=== PATIENT | female | born 1955 | race American Indian/Alaskan Native ===

== ENCOUNTER 2016-07-23 09:57 | Emergency (ER) | payer MEDICAID ==
[2016-07-23 10:21] VITALS: BP 152/94
[2016-07-23] MEDS ORDERED: GEODON IM ONE ×2 (10:45→10:56)
[2016-07-23 11:08] LABS: Basophils % (Auto) 0.3 % (0.0-1.8); Eosinophils % (Auto) 0.1 % (0.0-4.3); Hematocrit 43.8 % (30.3-42.9); Hemoglobin 13.8 gm/dl (10.1-14.3); Mean Corpuscular HGB Conc 31 % (30-34); Mean Corpuscular Hemoglobin 28 pg (28-32); Mean Corpuscular Volume 88 fl (79-97); Platelet Count 255 K/mm3 (140-440); Red Blood Count 4.98 M/mm3 (3.65-5.03); Red Cell Distribution Width 13.8 % (13.2-15.2); White Blood Count 9.6 K/mm3 (4.5-11.0)
[2016-07-23 11:15] LABS: Anion Gap 23 mmol/L; Blood Urea Nitrogen 16 mg/dL (7-17); Calcium 9.8 mg/dL (8.4-10.2); Carbon Dioxide 24 mmol/L (22-30); Chloride 102.6 mmol/L (98-107); Glucose 97 mg/dL (65-100); Potassium 3.6 mmol/L (3.6-5.0); Sodium 146 mmol/L (137-145)
--- NOTE | 2016-07-23 14:39 | Consultation ---
History of Present Illness - Reason for Consult Consult date: 07/23/16 Reason for consult: Mental Health Eval Requesting physician: MELISA JORGENSEN - Chief Complaint Chief complaint: Patient threatening Staff - History of Present Psychiatric Illness 60 y.o. AA male patient [facility] to [facility]. In the ER patient threatening the staff per the assigned RN. She was given Geodon 5 mg IM for agitation. Upon arrival to patient's room, she was resting. I introduced myself and she mumbled gestures that I could not understand. She would not tell me her name and turned away from me in her bed once I asked her other questions. I could not attain an assessment at this time. Medications and Allergies Allergies Allergy/AdvReac Type Severity Reaction Status Date / Time No Known Allergies Allergy Verified 10/15/15 23:54 Home Medications Medication Instructions Recorded Confirmed Last Taken Type Losartan [Cozaar] 50 mg PO QDAY 12/12/15 07/23/16 Unknown History [place] Carbonate [[place] 600 mg PO QHS 07/23/16 07/23/16 Unknown History Carbonate ER] Metoprolol Xl [Metoprolol 25 mg PO QDAY 07/23/16 07/23/16 Unknown History SUCCINATE ER TAB] Quetiapine Fumarate [SEROquel] 100 mg PO QPM 07/23/16 07/23/16 Unknown History Quetiapine Fumarate [SEROquel] 150 mg PO QAM 07/23/16 07/23/16 Unknown History Quetiapine Fumarate [SEROquel] 300 mg PO QHS 07/23/16 07/23/16 Unknown History clonazePAM [ Klonopin] 0.5 mg PO BID PRN 07/23/16 07/23/16 Unknown History diphenhydrAMINE [Benadryl CAP] 50 mg PO Q8HR PRN 07/23/16 07/23/16 Unknown History Past psychiatric history - Past Medical History Past Medical History: other (unable to assess) Past Surgical History: Other (unable to assess) - past Psychiatric treatment and history psychiatric treatment history: unable to assess - Social History Social history: other (resides with caregiver) Mental Status Exam - Vital signs Last Vital Signs Temp 98.1 F 07/23/16 10:14 Pulse 87 07/23/16 10:14 Resp 16 07/23/16 11:03 BP 152/94 03/19/17 10:14 Pulse Ox 99 07/23/16 10:14 - Exam Affect: flat Mood: other Thought content: other (unable to assess) Thought Process: Disoriented Perceptions: other (unable to assess) Speech: other (mumble) Concentration: distractible, unable to pay attention Motor activity: other (Lying in bed) Level of consciousness: other (awake) Interaction: uncooperative Results Result Diagrams: 07/23/16 10:46 07/23/16 10:46 Abnormal lab results 07/23/16 07/23/16 Range/Units 10:46 10:46 Hct 43.8 H (30.3-42.9) % Sodium 146 H (137-145) mmol/L All other labs normal. Assessment and Plan Assessment and plan: Impression: Psychosis. Patient is uncooperative at this time to answer questions. Recommendation: 1013 with pending inpatient psychiatry services.
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
[2016-07-23] MEDS ORDERED: ALUM-MAG HYDROX-SIMETH 200-200-20MG/5ML PO PRN (15:44)
[2016-07-23] MEDS ORDERED: TYLENOL PO PRN (15:44)
[2016-07-23] MEDS ORDERED: MILK OF MAGNESIA PO PRN (15:44)
[2016-07-23] MEDS ORDERED: GEODON IM PRN (15:45)
[2016-07-23] MEDS ORDERED: GEODON PO SCH (16:00)
[2016-07-23] MEDS ORDERED: NORVASC PO SCH (16:00)
== END 2016-07-23 18:25 ==
LOC: ED 09:57 → EEVIPCON 09:57 → ED 18:25
DX: F23 Brief psychotic disorder (principal); F20.9 Schizophrenia, unspecified; I10 Essential (primary) hypertension
CPT/HCPCS: 36415; 80048; 80178; 85025; 96372; 99285; G0480; J3486; 80320

== ENCOUNTER 2017-05-11 20:06 | Emergency (ER) | payer MEDICAID ==
--- NOTE | 2017-05-11 22:21 | Emergency Department Report ---
ED Psych HPI - General Chief Complaint: Psych Stated Complaint: disoriented Time Seen by Provider: 05/11/17 22:18 Source: police Mode of arrival: Ambulatory - History of Present Illness Initial Comments: Patient is a 61-year-old Female past medical history schizophrenia and is being awaited for mental health issues. Patient brought in by police stating that she was lost and needs mental health evaluation. Patient is a very poor historian and very hard to understand however she is shaking her head that she has no pain at this time she is this point several times to her T and hurt her chest but shakes her head no to the following questions: Shortness of breath chest pain fever nausea vomiting suicidal or homicidal ideations MD Complaint: altered mental status -: unknown Associated Symptoms: confusion - Related Data Home Medications Medication Instructions Recorded Confirmed Last Taken Losartan [Cozaar] 50 mg PO QDAY 12/12/15 07/23/16 Unknown [place] Carbonate [[place] 600 mg PO QHS 07/23/16 07/23/16 Unknown Carbonate ER] Metoprolol Xl [Metoprolol 25 mg PO QDAY 07/23/16 07/23/16 Unknown SUCCINATE ER TAB] Quetiapine Fumarate [SEROquel] 100 mg PO QPM 07/23/16 07/23/16 Unknown Quetiapine Fumarate [SEROquel] 150 mg PO QAM 07/23/16 07/23/16 Unknown Quetiapine Fumarate [SEROquel] 300 mg PO QHS 07/23/16 07/23/16 Unknown clonazePAM [ Klonopin] 0.5 mg PO BID PRN 07/23/16 07/23/16 Unknown diphenhydrAMINE [Benadryl CAP] 50 mg PO Q8HR PRN 07/23/16 07/23/16 Unknown Allergies Allergy/AdvReac Type Severity Reaction Status Date / Time No Known Allergies Allergy Verified 10/15/15 23:54 ED Review of Systems ROS: Stated complaint: VAG BLEEDING Other details as noted in HPI Comment: Unobtainable due to pts medical conditions ED Past Medical Hx - Past Medical History Hx Hypertension: Yes Hx Psychiatric Treatment: Yes Additional medical history: CHRONIC SCHIZOPHRENIA - Surgical History Past Surgical History?: No - Social History Smoking Status: Never Smoker Substance Use Type: None - Medications Home Medications: Home Medications Medication Instructions Recorded Confirmed Last Taken Type Losartan [Cozaar] 50 mg PO QDAY 12/12/15 07/23/16 Unknown History [place] Carbonate [[place] 600 mg PO QHS 07/23/16 07/23/16 Unknown History Carbonate ER] Metoprolol Xl [Metoprolol 25 mg PO QDAY 07/23/16 07/23/16 Unknown History SUCCINATE ER TAB] Quetiapine Fumarate [SEROquel] 100 mg PO QPM 07/23/16 07/23/16 Unknown History Quetiapine Fumarate [SEROquel] 150 mg PO QAM 07/23/16 07/23/16 Unknown History Quetiapine Fumarate [SEROquel] 300 mg PO QHS 07/23/16 07/23/16 Unknown History clonazePAM [ Klonopin] 0.5 mg PO BID PRN 07/23/16 07/23/16 Unknown History diphenhydrAMINE [Benadryl CAP] 50 mg PO Q8HR PRN 07/23/16 07/23/16 Unknown History ED Physical Exam - General Limitations: Language Barrier General appearance: alert, in no apparent distress - Head Head exam: Present: atraumatic, normocephalic - Eye Eye exam: Present: normal appearance - ENT ENT exam: Present: mucous membranes moist - Neck Neck exam: Present: normal inspection - Respiratory Respiratory exam: Present: normal lung sounds bilaterally. Absent: respiratory distress - Cardiovascular Cardiovascular Exam: Present: regular rate, normal rhythm. Absent: systolic murmur, diastolic murmur, rubs, gallop - GI/Abdominal GI/Abdominal exam: Present: soft, normal bowel sounds - Extremities Exam Extremities exam: Present: normal inspection - Back Exam Back exam: Present: normal inspection - Neurological Exam Neurological exam: Present: alert, oriented X3 - Psychiatric Psychiatric exam: Present: normal affect, normal mood, other (very difficult to understand the patient's speech pattern) - Skin Skin exam: Present: warm, dry, intact, normal color. Absent: rash ED Course Vital Signs 05/11/17 05/11/17 05/12/17 21:08 23:12 14:44 Temperature 98.5 F 98.6 F Pulse Rate 94 H 81 78 Respiratory 16 17 18 Rate Blood Pressure 178/99 Blood Pressure 154/85 152/82 [Left] O2 Sat by Pulse 96 97 98 Oximetry 05/12/17 16:00 Temperature Pulse Rate Respiratory 18 Rate Blood Pressure Blood Pressure [Left] O2 Sat by Pulse 98 Oximetry ED Medical Decision Making - Lab Data Result diagrams: 05/11/17 23:46 05/11/17 23:46 - Medical Decision Making Patient has been medically cleared for psych placement Critical care attestation.: If time is entered above; I have spent that time in minutes in the direct care of this critically ill patient, excluding procedure time. ED Disposition Clinical Impression: Schizophrenia, acute Disposition: DC/TX-65 PSY HOSP/PSY UNIT Is pt being admited?: No Does the pt Need Aspirin: No Condition: Stable Referrals: GABY MATTHEWS MD [Primary Care Provider] - 3-5 Days
[2017-05-12 00:18] LABS: Basophils % (Auto) 0.3 % (0.0-1.8); Eosinophils % (Auto) 0.2 % (0.0-4.3); Hematocrit 39.7 % (30.3-42.9); Hemoglobin 12.8 gm/dl (10.1-14.3); Lymphocytes # (Auto) 3.1 K/mm3 (1.2-5.4); Lymphocytes % (Auto) 24.6 % (13.4-35.0); Mean Corpuscular HGB Conc 32 % (30-34); Mean Corpuscular Hemoglobin 28 pg (28-32); Mean Corpuscular Volume 87 fl (79-97); Monocytes % (Auto) 7.8 % (0.0-7.3); Platelet Count 301 K/mm3 (140-440); Red Blood Count 4.58 M/mm3 (3.65-5.03)
[2017-05-12 00:45] LABS: BUN/Creatinine Ratio 18; Blood Urea Nitrogen 14 mg/dL (7-17); Calcium 9.6 mg/dL (8.4-10.2); Hemolysis Index 7
[2017-05-12 03:08] LABS: Color,Urine Yellow (Yellow)
[2017-05-12 03:09] LABS: Bilirubin,Urine Negative (Negative)
[2017-05-12 03:10] LABS: Blood,Urine Moderate (Negative); Nitrite,Urine Negative (Negative); Urobilinogen,Urine < 2.0 mg/dL (<2.0)
[2017-05-12 03:11] LABS: Amorphous Crystals,Urine Rare; Calcium Oxalate Crystals,Urine 1+; Hyaline Casts,Urine Rare /LPF; Mucus,Urine 1+ /HPF
[2017-05-12 03:25] LABS: Amphetamine Screen,Urine PRESUMPTIVE NEGATIVE; Benzodiazepines Screen,Urine PRESUMPTIVE NEGATIVE; Cannabinoid Screen,Urine PRESUMPTIVE NEGATIVE; Cocaine Screen,Urine PRESUMPTIVE NEGATIVE; Methadone Screen,Urine PRESUMPTIVE NEGATIVE; Opiate Screen,Urine PRESUMPTIVE NEGATIVE
[2017-05-12 14:45] VITALS: BP 152/82
== END 2017-05-12 16:09 | disposition other institution (70) ==
LOC: ED 20:06 → EEVIPCON 20:06 → ED 05-12 16:09
DX: F20.9 Schizophrenia, unspecified (principal); I10 Essential (primary) hypertension
CPT/HCPCS: 36415; 80048; 80307; 81001; 84702; 85025; 86850; 86900; 86901; 99285; G0480; 80320

== ENCOUNTER 2017-07-13 08:37 | Emergency (ER) | payer MEDICAID ==
[2017-07-13 10:40] LABS: Basophils % (Auto) 0.2 % (0.0-1.8); Eosinophils % (Auto) 0.2 % (0.0-4.3); Lymphocytes # (Auto) 1.9 K/mm3 (1.2-5.4); Mean Corpuscular HGB Conc 33 % (30-34); Mean Corpuscular Hemoglobin 28 pg (28-32); Mean Corpuscular Volume 85 fl (79-97); Monocytes # (Auto) 0.7 K/mm3 (0.0-0.8); Monocytes % (Auto) 6.3 % (0.0-7.3); Platelet Count 324 K/mm3 (140-440); Red Blood Count 4.25 M/mm3 (3.65-5.03)
[2017-07-13 10:52] LABS: BUN/Creatinine Ratio 22; Blood Urea Nitrogen 13 mg/dL (7-17); Calcium 8.8 mg/dL (8.4-10.2); Hemolysis Index 2
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
[2017-07-13] MEDS ORDERED: HALDOL IM ONE (11:47)
[2017-07-13 13:35] LABS: Bilirubin,Urine NEG (Negative); Blood,Urine MOD (Negative); Color,Urine Yellow (Yellow); Hyaline Casts,Urine 1 /LPF; Mucus,Urine 2+ /HPF; Protein,Urine <15 mg/dL mg/dL (Negative); Urobilinogen,Urine < 2.0 mg/dL (<2.0)
[2017-07-13 13:44] LABS: Amphetamine Screen,Urine PRESUMPTIVE NEGATIVE; Benzodiazepines Screen,Urine PRESUMPTIVE NEGATIVE; Cannabinoid Screen,Urine PRESUMPTIVE NEGATIVE; Cocaine Screen,Urine PRESUMPTIVE NEGATIVE; Methadone Screen,Urine PRESUMPTIVE NEGATIVE; Opiate Screen,Urine PRESUMPTIVE NEGATIVE
[2017-07-13 20:47] VITALS: BP 116/60
== END 2017-07-13 20:46 ==
LOC: ED 08:37
DX: F20.89 Other schizophrenia (principal); F91.8 Other conduct disorders; I10 Essential (primary) hypertension
CPT/HCPCS: 36415; 80048; 80307; 81001; 85025; 96372; 99285; G0480; J1630; 80320

== ENCOUNTER 2019-03-02 10:19 | Emergency (ER) | payer MEDICARE, MEDICAID ==
[2019-03-02] MEDS ORDERED: ZIPRASIDONE MESYLATE 20 MG VIAL IM ONE (10:43)
[2019-03-02] MEDS ORDERED: WATER FOR INJ Sterile (PF) 10 ML ONE (10:48)
--- NOTE | 2019-03-02 10:53 | Emergency Department Report ---
ED General Adult HPI - General Chief complaint: Psych Stated complaint: MH Time Seen by Provider: 03/02/19 10:42 Source: police Mode of arrival: Ambulatory Limitations: No Limitations - History of Present Illness Initial comments: The patient presents to the emergency department from her place of residence for aggressive and combative behavior. The patient is facility and has been here multiple times prior. The patient denies psychiatric history and also denies homicidal or suicidal ideations. Patient denies auditory or visual hallucinations -: Sudden Severity scale (0 -10): 0 Improves with: none Worsens with: none Associated Symptoms: denies other symptoms Treatments Prior to Arrival: none - Related Data Home Medications Medication Instructions Recorded Confirmed Last Taken Losartan [Cozaar] 50 mg PO QDAY 12/12/15 01/17/19 Unknown [place] Carbonate [[place] 600 mg PO QHS 07/23/16 01/17/19 Unknown Carbonate ER] Metoprolol Xl [Metoprolol 25 mg PO QDAY 07/23/16 01/17/19 Unknown SUCCINATE ER TAB] clonazePAM [KlonoPIN] 0.5 mg PO BID PRN 07/23/16 01/17/19 Unknown diphenhydrAMINE [Benadryl CAP] 50 mg PO Q8HR PRN 07/23/16 01/17/19 Unknown traZODone [Desyrel] 400 mg PO QHS 01/09/19 01/17/19 Unknown Previous Rx's Medication Instructions Recorded Last Taken Type QUEtiapine [SEROquel] 100 mg PO QPM #30 tablet 01/23/19 Unknown Rx QUEtiapine [SEROquel] 200 mg PO QAM #60 tablet 01/23/19 Unknown Rx QUEtiapine [SEROquel] 600 mg PO QHS #90 tablet 01/23/19 Unknown Rx Allergies Allergy/AdvReac Type Severity Reaction Status Date / Time No Known Allergies Allergy Verified 10/15/15 23:54 ED Review of Systems ROS: Stated complaint: MH Other details as noted in HPI Comment: All other systems reviewed and negative Constitutional: denies: chills, fever Eyes: denies: eye pain, eye discharge, vision change ENT: denies: ear pain, throat pain Respiratory: denies: cough, shortness of breath, wheezing Cardiovascular: denies: chest pain, palpitations Endocrine: no symptoms reported Gastrointestinal: denies: abdominal pain, nausea, diarrhea Genitourinary: denies: urgency, dysuria, discharge Musculoskeletal: denies: back pain, joint swelling, arthralgia Skin: denies: rash, lesions Neurological: denies: headache, weakness, paresthesias Psychiatric: denies: anxiety, depression Hematological/Lymphatic: denies: easy bleeding, easy bruising ED Past Medical Hx - Past Medical History Hx Hypertension: Yes Hx Renal Disease: No Hx Arthritis: No Hx Seizures: No Hx Psychiatric Treatment: Yes Hx Dementia: No Additional medical history: CHRONIC SCHIZOPHRENIA - Surgical History Hx Cholecystectomy: No Hx Appendectomy: No Additional Surgical History: unknown - Social History Smoking Status: Never Smoker Substance Use Type: None - Medications Home Medications: Home Medications Medication Instructions Recorded Confirmed Last Taken Type Losartan [Cozaar] 50 mg PO QDAY 12/12/15 01/17/19 Unknown History [place] Carbonate [[place] 600 mg PO QHS 07/23/16 01/17/19 Unknown History Carbonate ER] Metoprolol Xl [Metoprolol 25 mg PO QDAY 07/23/16 01/17/19 Unknown History SUCCINATE ER TAB] clonazePAM [KlonoPIN] 0.5 mg PO BID PRN 07/23/16 01/17/19 Unknown History diphenhydrAMINE [Benadryl CAP] 50 mg PO Q8HR PRN 07/23/16 01/17/19 Unknown His tory traZODone [Desyrel] 400 mg PO QHS 01/09/19 01/17/19 Unknown History QUEtiapine [SEROquel] 100 mg PO QPM #30 tablet 01/23/19 Unknown Rx QUEtiapine [SEROquel] 200 mg PO QAM #60 tablet 01/23/19 Unknown Rx QUEtiapine [SEROquel] 600 mg PO QHS #90 tablet 01/23/19 Unknown Rx ED Physical Exam - General Limitations: No Limitations General appearance: alert, in no apparent distress - Head Head exam: Present: atraumatic, normocephalic - Eye Eye exam: Present: normal appearance, PERRL, EOMI - ENT ENT exam: Present: mucous membranes moist - Neck Neck exam: Present: normal inspection - Respiratory Respiratory exam: Present: normal lung sounds bilaterally. Absent: respiratory distress - Cardiovascular Cardiovascular Exam: Present: regular rate, normal rhythm. Absent: systolic murmur, diastolic murmur, rubs, gallop - GI/Abdominal GI/Abdominal exam: Present: soft, normal bowel sounds. Absent: distended, tenderness - Extremities Exam Extremities exam: Present: normal inspection - Back Exam Back exam: Present: normal inspection - Neurological Exam Neurological exam: Present: alert, oriented X3, CN II-XII intact. Absent: motor sensory deficit - Psychiatric Psychiatric exam: Present: normal affect, normal mood - Skin Skin exam: Present: warm, dry, intact, normal color. Absent: rash ED Course Vital Signs 03/02/19 11:30 Temperature 97.3 F L Pulse Rate 100 H Respiratory 18 Rate Blood Pressure 123/80 [Left] O2 Sat by Pulse 96 Oximetry ED Medical Decision Making - Lab Data Result diagrams: 03/02/19 11:31 03/02/19 11:31 Lab Results 03/02/19 03/02/19 03/02/19 Range/Units 11:31 11:31 11:31 WBC (4.5-11.0) K/mm3 RBC (3.65-5.03) M/mm3 Hgb (10.1-14.3) gm/dl Hct (30.3-42.9) % MCV (79-97) fl MCH (28-32) pg MCHC (30-34) % RDW (13.2-15.2) % Plt Count (140-440) K/mm3 Lymph % (Auto) (13.4-35.0) % [place] % (Auto) (0.0-7.3) % Eos % (Auto) (0.0-4.3) % Baso % (Auto) (0.0-1.8) % Lymph # (1.2-5.4) K/mm3 [place] # (0.0-0.8) K/mm3 Eos # (0.0-0.4) K/mm3 Baso # (0.0-0.1) K/mm3 Seg Neutrophils % (40.0-70.0) % Seg Neutrophils # (1.8-7.7) K/mm3 Sodium 140 (137-145) mmol/L Potassium 3.0 L (3.6-5.0) mmol/L Chloride 99.0 (98-107) mmol/L Carbon Dioxide 24 (22-30) mmol/L Anion Gap 20 mmol/L BUN 9 (7-17) mg/dL Creatinine 0.8 (0.7-1.2) mg/dL Estimated GFR > 60 ml/min BUN/Creatinine Ratio 11 % Glucose 218 H (65-100) mg/dL Calcium 9.2 (8.4-10.2) mg/dL Salicylates < 0.3 L (2.8-20.0) mg/dL Acetaminophen < 5.0 L (10.0-30.0) ug/mL Plasma/Serum Alcohol (0-0.07) % 03/02/19 03/02/19 Range/Units 11:31 11:31 WBC 11.9 H (4.5-11.0) K/mm3 RBC 4.47 (3.65-5.03) M/mm3 Hgb 12.4 (10.1-14.3) gm/dl Hct 38.7 (30.3-42.9) % MCV 87 (79-97) fl MCH 28 (28-32) pg MCHC 32 (30-34) % RDW 16.9 H (13.2-15.2) % Plt Count 330 (140-440) K/mm3 Lymph % (Auto) 9.3 L (13.4-35.0) % [place] % (Auto) 3.6 (0.0-7.3) % Eos % (Auto) 0.1 (0.0-4.3) % Baso % (Auto) 0.6 (0.0-1.8) % Lymph # 1.1 L (1.2-5.4) K/mm3 [place] # 0.4 (0.0-0.8) K/mm3 Eos # 0.0 (0.0-0.4) K/mm3 Baso # 0.1 (0.0-0.1) K/mm3 Seg Neutrophils % 86.4 H (40.0-70.0) % Seg Neutrophils # 10.3 H (1.8-7.7) K/mm3 Sodium (137-145) mmol/L Potassium (3.6-5.0) mmol/L Chloride (98-107) mmol/L Carbon Dioxide (22-30) mmol/L Anion Gap mmol/L BUN (7-17) mg/dL Creatinine (0.7-1.2) mg/dL Estimated GFR ml/min BUN/Creatinine Ratio % Glucose (65-100) mg/dL Calcium (8.4-10.2) mg/dL Salicylates (2.8-20.0) mg/dL Acetaminophen (10.0-30.0) ug/mL Plasma/Serum Alcohol < 0.01 (0-0.07) % - Medical Decision Making medically cleared Critical care attestation.: If time is entered above; I have spent that time in minutes in the direct care of this critically ill patient, excluding procedure time. ED Disposition Clinical Impression: Combative behavior Disposition: DC/TX-[facility] PSY HOSP/PSY UNIT Is pt being admited?: No Does the pt Need Aspirin: No Condition: Stable
[2019-03-02 12:09] LABS: Basophils # (Auto) 0.1 K/mm3 (0.0-0.1); Basophils % (Auto) 0.6 % (0.0-1.8); Eosinophils % (Auto) 0.1 % (0.0-4.3); Hematocrit 38.7 % (30.3-42.9); Hemoglobin 12.4 gm/dl (10.1-14.3); Lymphocytes # (Auto) 1.1 K/mm3 (1.2-5.4); Lymphocytes % (Auto) 9.3 % (13.4-35.0); Mean Corpuscular HGB Conc 32 % (30-34); Mean Corpuscular Volume 87 fl (79-97); Monocytes # (Auto) 0.4 K/mm3 (0.0-0.8); Monocytes % (Auto) 3.6 % (0.0-7.3); Platelet Count 330 K/mm3 (140-440); Red Blood Count 4.47 M/mm3 (3.65-5.03); Red Cell Distribution Width 16.9 % (13.2-15.2)
[2019-03-02 12:23] LABS: BUN/Creatinine Ratio 11; Blood Urea Nitrogen 9 mg/dL (7-17); Calcium 9.2 mg/dL (8.4-10.2); Hemolysis Index 47
[2019-03-02 14:48] LABS: Bilirubin,Urine NEG (Negative); Blood,Urine SM (Negative); Color,Urine Straw (Yellow); Protein,Urine <15 mg/dL mg/dL (Negative); Urobilinogen,Urine < 2.0 mg/dL (<2.0); WBC,Urine < 1.0 /HPF (0.0-6.0)
[2019-03-02 14:53] LABS: RBC,Urine < 1.0 /HPF (0.0-6.0)
[2019-03-02 14:58] LABS: Amphetamine Screen,Urine PRESUMPTIVE NEGATIVE; Benzodiazepines Screen,Urine PRESUMPTIVE NEGATIVE; Cannabinoid Screen,Urine PRESUMPTIVE NEGATIVE; Cocaine Screen,Urine PRESUMPTIVE NEGATIVE; Methadone Screen,Urine PRESUMPTIVE NEGATIVE; Opiate Screen,Urine PRESUMPTIVE NEGATIVE
[2019-03-02] MEDS ORDERED: POTASSIUM CHLORIDE ER 20 MEQ TAB PO ONE (17:50)
--- NOTE | 2019-03-03 13:06 | Consultation ---
History of Present Illness - Reason for Consult Consult date: 03/03/19 Reason for consult: Mental Health Evaluation Requesting physician: CHIN AGUILLON - Chief Complaint Chief complaint: "The patient was nonverbal" - History of Present Psychiatric Illness 63 y.o. AA female who presented to the ER for aggressive behavior at her personal detention. Today the patient would not cooperate during the assessment. She would not answer any questions asked of her. Several attempts was made to engage the patient, but was unsuccessful. No gestures of SI/HI's. Medications and Allergies Allergies Allergy/AdvReac Type Severity Reaction Status Date / Time No Known Allergies Allergy Verified 10/15/15 23:54 Home Medications Medication Instructions Recorded Confirmed Last Taken Type Losartan [Cozaar] 50 mg PO QDAY 12/12/15 03/02/19 Unknown History [place] Carbonate [[place] 600 mg PO QHS 07/23/16 03/02/19 Unknown History Carbonate ER] Metoprolol Xl [Metoprolol 25 mg PO QDAY 07/23/16 03/02/19 Unknown History SUCCINATE ER TAB] clonazePAM [KlonoPIN] 0.5 mg PO BID PRN 07/23/16 03/02/19 Unknown History diphenhydrAMINE [Benadryl CAP] 50 mg PO Q8HR PRN 07/23/16 03/02/19 Unknown History traZODone [Desyrel] 400 mg PO QHS 01/09/19 03/02/19 Unknown History QUEtiapine [SEROquel] 100 mg PO QPM #30 tablet 01/23/19 03/02/19 Unknown Rx QUEtiapine [SEROquel] 200 mg PO QAM #60 tablet 01/23/19 03/02/19 Unknown Rx QUEtiapine [SEROquel] 600 mg PO QHS #90 tablet 01/23/19 03/02/19 Unknown Rx NIFEdipine [Nifedipine ER] 60 mg PO DAILY 03/02/19 03/02/19 Unknown History Sertraline [Zoloft] 50 mg PO DAILY 03/02/19 03/02/19 Unknown History fluPHENAZine 5 mg PO BID 03/02/19 03/02/19 Unknown History risperiDONE [Risperdal] 2 mg PO QHS 03/02/19 03/02/19 Unknown History Past psychiatric history - Past Medical History Past Medical History: other (Unable to obtain ) Past Surgical History: Other (Unable to obtain ) - past Psychiatric treatment and history psychiatric treatment history: Several inpatient psy services per the record. Unable to obtain a fam psy hx. - Social History Social history: other (Reside at a personal detention) Mental Status Exam - Vital signs Last Vital Signs Temp 98.4 F 03/03/19 07:00 Pulse 65 03/03/19 07:00 Resp 18 03/03/19 07:00 BP 136/92 03/03/19 07:00 Pulse Ox 100 03/03/19 07:00 - Exam Narrative exam: Unable to to complete the MSE because the patient refused to cooperate, Results Result Diagrams: 03/02/19 11:31 03/02/19 11:31 Abnormal lab results 03/02/19 Range/Units Unknown Urine pH 8.0 H (5.0-7.0) All other labs normal. 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 Today the patient was nonverbal during the assessment. Recommendation/Plan: Referred the patient to the 5th floor ([facility]). Dispo; The patient was accepted on the 5th floor [facility]. Will staff with Dr Cristina Cruz.
[2019-03-03 14:11] VITALS: BP 139/81
== END 2019-03-03 15:17 ==
LOC: ED 10:19 → EEVIPCON 10:19 → ED 03-03 15:17
DX: F29 Unspecified psychosis not due to a substance or known physiological condition (principal); F20.9 Schizophrenia, unspecified; I10 Essential (primary) hypertension; Z79.899 Other long term (current) drug therapy
CPT/HCPCS: 36415; 80048; 80307; 81001; 85025; 96372; 99284; J3486; 80320; G0480

== ENCOUNTER 2021-12-15 23:25 | Emergency (ER) | payer MEDICARE ==
--- NOTE | 2021-12-16 01:13 | Emergency Department Report ---
ED General Adult HPI - General Chief complaint: Arrhythmia/Palpitations Stated complaint: NOT RESTING PROPERLY Time Seen by Provider: 12/15/21 23:59 Source: EMS Mode of arrival: Stretcher Limitations: No Limitations - History of Present Illness Initial comments: 66-year-old female with a history of paranoid schizophrenia who have house bound brought into the emergency room tonight because she says she was in sleep improperly. Patient however denied any chest pain, shortness of breath, or any palpitation. When asked specifically if there is any unusual stressor she said no. No other modifying or associated factors reported. - Related Data Home Medications Medication Instructions Recorded Confirmed Last Taken Losartan [Cozaar] 50 mg PO QDAY 12/12/15 03/03/19 Unknown Metoprolol Xl [Metoprolol 25 mg PO QDAY 07/23/16 03/07/19 Unknown SUCCINATE ER TAB] diphenhydrAMINE [Benadryl CAP] 50 mg PO Q8HR PRN 07/23/16 03/07/19 Unknown NIFEdipine [Nifedipine ER] 60 mg PO DAILY 03/02/19 03/03/19 Unknown Naproxen [Naprosyn TAB] 500 mg PO DAILY 03/03/19 03/03/19 Unknown Previous Rx's Medication Instructions Recorded Last Taken Type [place] Carbonate [[place] 600 mg PO QHS #60 03/07/19 Unknown Rx Carbonate ER] QUEtiapine [SEROquel] 100 mg PO QPM #30 tablet 03/07/19 Unknown Rx QUEtiapine [SEROquel] 200 mg PO QAM #60 tablet 03/07/19 Unknown Rx QUEtiapine [SEROquel] 600 mg PO QHS #90 tablet 03/07/19 Unknown Rx Sertraline [Zoloft] 50 mg PO DAILY #30 03/07/19 Unknown Rx clonazePAM [KlonoPIN] 0.5 mg PO BID PRN #60 03/07/19 Unknown Rx traZODone [Desyrel] 50 mg PO QHS #30 tablet 03/07/19 Unknown Rx Allergies Allergy/AdvReac Type Severity Reaction Status Date / Time No Known Allergies Allergy Verified 10/15/15 23:54 ED Review of Systems ROS: Stated complaint: NOT RESTING PROPERLY Other details as noted in HPI Comment: All other systems reviewed and negative Endocrine: other (insomnia) Psychiatric: other (insomnia) ED Past Medical Hx - Past Medical History Previous Medical History?: Yes Hx Hypertension: Yes Hx Diabetes: Yes Hx Renal Disease: No Hx Arthritis: No Hx Seizures: No Hx Psychiatric Treatment: Yes (schizophrenia) Hx Dementia: No Additional medical history: CHRONIC SCHIZOPHRENIA - Surgical History Past Surgical History?: No Hx Cholecystectomy: No Hx Appendectomy: No Additional Surgical History: unknown - Social History Smoking Status: Never Smoker Substance Use Type: None - Medications Home Medications: Home Medications Medication Instructions Recorded Confirmed Last Taken Type Losartan [Cozaar] 50 mg PO QDAY 12/12/15 03/03/19 Unknown History Metoprolol Xl [Metoprolol 25 mg PO QDAY 07/23/16 03/07/19 Unknown History SUCCINATE ER TAB] diphenhydrAMINE [Benadryl CAP] 50 mg PO Q8HR PRN 07/23/16 03/07/19 Unknown History NIFEdipine [Nifedipine ER] 60 mg PO DAILY 03/02/19 03/03/19 Unknown History Naproxen [Naprosyn TAB] 500 mg PO DAILY 03/03/19 03/03/19 Unknown History [place] Carbonate [[place] 600 mg PO QHS #60 03/07/19 Unknown Rx Carbonate ER] QUEtiapine [SEROquel] 100 mg PO QPM #30 tablet 03/07/19 Unknown Rx QUEtiapine [SEROquel] 200 mg PO QAM #60 tablet 03/07/19 Unknown Rx QUEtiapine [SEROquel] 600 mg PO QHS #90 tablet 03/07/19 Unknown Rx Sertraline [Zoloft] 50 mg PO DAILY #30 03/07/19 Unknown Rx clonazePAM [KlonoPIN] 0.5 mg PO BID PRN #60 03/07/19 Unknown Rx traZODone [Desyrel] 50 mg PO QHS #30 tablet 03/07/19 Unknown Rx ED Physical Exam - General Limitations: No Limitations General appearance: alert, in no apparent distress - Head Head exam: Present: normal inspection - Eye Eye exam: Present: normal appearance Pupils: Present: normal accommodation - ENT ENT exam: Present: normal exam, normal orophraynx, mucous membranes dry - Neck Neck exam: Present: normal inspection, full ROM. Absent: tenderness - Respiratory Respiratory exam: Present: normal lung sounds bilaterally. Absent: respiratory distress, accessory muscle use - Cardiovascular Cardiovascular Exam: Present: regular rate, normal rhythm, normal heart sounds - GI/Abdominal GI/Abdominal exam: Present: soft, normal bowel sounds. Absent: distended, tenderness - Extremities Exam Extremities exam: Present: normal inspection, normal capillary refill. Absent: pedal edema - Back Exam Back exam: Absent: tenderness - Neurological Exam Neurological exam: Present: alert, oriented X3 - Psychiatric Psychiatric exam: Present: normal affect, normal mood - Skin Skin exam: Present: warm, normal color ED Course Vital Signs 12/15/21 12/15/21 23:43 23:54 Temperature 99 F Pulse Rate 80 Respiratory 18 20 Rate Blood Pressure 171/90 O2 Sat by Pulse 97 98 Oximetry ED Medical Decision Making - Lab Data Result diagrams: 12/16/21 02:01 12/16/21 02:01 - Medical Decision Making here with insomnia in a patient with history of paranoid schizophrenia--we will go ahead and do basic lab including CBC, CMP and UA to be sure there is no infectious process or any electrolytes abnormalities stressing this patient out. In the meantime we will go ahead and give trazodone 25 mg Po x 1-- Critical care attestation.: If time is entered above; I have spent that time in minutes in the direct care of this critically ill patient, excluding procedure time. ED Disposition Clinical Impression: Insomnia Qualifiers: Insomnia type: unspecified Qualified Code(s): G47.00 - Insomnia, unspecified Disposition: 01 HOME / SELF CARE / HOMELESS Is pt being admited?: No Does the pt Need Aspirin: No Condition: Stable Additional Instructions: It would be helpful if you go to bed at the same time in the evening or at night to help your sleep routine Take a tepid shower before going to bed at night Increase your daily fluid to help your hydration Call and schedule follow-up with your primary doctor in the next 3 to 5 days for progress Please do not hesitate to call or return to emergency room if your symptoms worsen Time of Disposition: 04:40
[2021-12-16 02:24] LABS: Basophils % (Auto) 0.5 % (0.0-1.8); Eosinophils % (Auto) 0.4 % (0.0-4.3); Hematocrit 39.1 % (30.3-42.9); Hemoglobin 12.4 gm/dl (10.1-14.3); Lymphocytes # (Auto) 3.2 K/mm3 (1.2-5.4); Lymphocytes % (Auto) 32.5 % (13.4-35.0); Mean Corpuscular HGB Conc 32 % (30-34); Mean Corpuscular Volume 84 fl (79-97); Monocytes # (Auto) 0.7 K/mm3 (0.0-0.8); Monocytes % (Auto) 7.2 % (0.0-7.3); Platelet Count 304 K/mm3 (140-440); Red Blood Count 4.66 M/mm3 (3.65-5.03); Red Cell Distribution Width 15.9 % (13.2-15.2)
[2021-12-16 02:35] LABS: Alanine Aminotransferase 17 units/L (7-56); Blood Urea Nitrogen 14 mg/dL (7-17); Calcium 9.2 mg/dL (8.4-10.2); Hemolysis Index 12
[2021-12-16 02:36] LABS: BUN/Creatinine Ratio 23
[2021-12-16 02:45] LABS: Free T4 (Free Thyroxine) 1.2 ng/dL (0.76-1.46)
[2021-12-16 08:41] VITALS: BP 145/67
== END 2021-12-16 08:40 | disposition home or self-care (01) ==
LOC: ED 23:25
DX: G47.00 Insomnia, unspecified (principal); I10 Essential (primary) hypertension; E11.9 Type 2 diabetes mellitus without complications
CPT/HCPCS: 36415; 80053; 84439; 84443; 85025; 99283